=== PATIENT | female | born 1985 | race Hispanic/Latino ===

== ENCOUNTER 2019-05-24 11:08 | Emergency (ER) | payer OTHER ==
[~2019-05-24 11:08] MED LIST: ACET1TAB12 PO
[2019-05-24] MEDS ORDERED: SIMETHICONE 80 MG TAB.CHEW ONE (11:52)
[2019-05-24] MEDS ORDERED: DICYCLOMINE HCL 10 MG/ML 2ML AMP IM ONE (11:52)
[2019-05-24] MEDS ORDERED: ONDANSETRON ODT 4 MG TAB ONE (11:52)
== END 2019-05-24 14:42 | disposition home or self-care (01) ==
LOC: EDH 11:08
DX: R11.10 Vomiting, unspecified (principal); R19.7 Diarrhea, unspecified; Z90.49 Acquired absence of other specified parts of digestive tract; Z72.0 Tobacco use
CPT/HCPCS: 96372; 99283; J0500

== ENCOUNTER 2020-02-14 06:47 | Emergency (ER) | payer OTHER ==
[2020-02-14] MEDS ORDERED: SODIUM CHLORIDE 0.9% 1000ML 1,000 ML IV ONE ×2 (07:26→09:20)
[2020-02-14] MEDS ORDERED: ONDANSETRON HCL 4 MG/2 ML VIAL ONE (07:26)
[2020-02-14 07:27] LABS: BASOPHILS % (AUTO) 0.3 % (0.0-5.0); EOSINOPHILS % (AUTO) 0.1 % (0.0-8.0); HEMATOCRIT 44.8 % (36-48); LYMPHOCYTES % (AUTO) 13.3 % (21.0-51.0); MEAN CORPUSCULAR HGB CONC 34.8 g/dL (32.0-36.0); MEAN CORPUSCULAR VOLUME 89.1 fL (79-99); MONOCYTES % (AUTO) 9.7 % (3.0-13.0); NEUTROPHILS % (AUTO) 76.2 % (40.0-77.0); PLATELET COUNT (AUTO) 288 K/uL (130-400); RED BLOOD CELL COUNT(AUTO) 5.03 MIL/uL (4.00-5.50); RED CELL DISTRIBUTION WIDTH 12.3 % (11.0-15.5); WHITE BLOOD COUNT (AUTO) 11.3 K/uL (4.8-10.8)
[2020-02-14 07:54] LABS: ALBUMIN 3.5 g/dL (3.5-5.0); BILIRUBIN,TOTAL 0.5 mg/dL (0.2-1.0); TOTAL PROTEIN, SERUM 7.6 g/dL (6.0-8.3)
[2020-02-14] MEDS ORDERED: POTASSIUM BICARB/CIT AC 25 MEQ TABLET.EFF ONE (08:02)
[2020-02-14 08:33] LABS: APPEARANCE,URINE Clear (CLEAR); BILIRUBIN,URINE Small (NEGATIVE); COLOR,URINE Dark Yellow (YELLOW); GLUCOSE, URINE (UA) Negative (NEGATIVE); KETONES,URINE 15 mg/dL (NEGATIVE); LEUKOCYTE ESTERASE ,URINE Trace (NEGATIVE); NITRATE,URINE Negative (NEGATIVE); OCCULT BLOOD,URINE Small (NEGATIVE); PROTEIN,URINE POS 1+ mg/dL (NEGATIVE)
[2020-02-14 08:40] LABS: HCG,QUAL RESULT NEGATIVE (NEGATIVE)
[2020-02-14 08:44] LABS: RBC,URINE 0-1 /HPF (0-1); WBC,URINE 0-1 /HPF (0-1)
[2020-02-14 08:45] LABS: BACTERIA,URINE Few /HPF (None Seen); MUCUS,URINE Few LPF (None Seen); SQUAMOUS EPITHELIAL CELL,UR Rare /HPF (0-2)
[2020-02-14] MEDS ORDERED: LEVOFLOXACIN 500 MG/D5W 100 ML 100 ML ONE (09:21)
== END 2020-02-14 12:51 | disposition home or self-care (01) ==
LOC: EDH 06:47
DX: U07.1 COVID-19 (principal); A09 Infectious gastroenteritis and colitis, unspecified; R11.2 Nausea with vomiting, unspecified; E86.0 Dehydration; Z90.49 Acquired absence of other specified parts of digestive tract; Z72.0 Tobacco use
CPT/HCPCS: 36415; 80053; 81001; 81025; 82150; 82270; 83630; 83690; 85025; 87040 ×2; 87046; 87324; 87426; 96365; 96367; 96372; 99284; J1956; J2405; J7030 ×2; U0003